=== PATIENT | male | born 1950 | race African-American/Black ===

== ENCOUNTER 2017-10-20 10:45 | Observation (INO) | payer MEDICARE, BC ==
[2017-10-20 11:15] LABS: #Lymphocytes 0.3 thou/uL (1.20-3.40); #Monocytes 0.2 thou/uL (0.11-0.59); %Eosinophils 0.7 % (0.0-10.0); %Lymphocytes 13.3 % (21.0-51.0); Hemoglobin 6.1 g/dL (14.0-18.0); Mean Corpuscular HGB CONC 31.9 g/dL (32.0-36.0); Mean Corpuscular Hemoglobin 26.9 pg (27.0-31.0); Mean Corpuscular Volume 84.4 fl (80.0-94.0); Mean Platelet Volume 11.4 fL (7.4-10.4); Platelet Count 174 thou/uL (130-400); RBC Distribution Width 19.7 % (11.5-14.5); Red Blood Cell (RBC) Count 2.28 mill/uL (4.70-6.10); White Blood Cell (WBC) Count 2.5 thou/uL (4.8-10.8)
[2017-10-20 11:38] LABS: ALT (SGPT) 8 U/L (8-55); AST (SGOT) 13 U/L (5-34); Alkaline Phosphatase 91 U/L (40-150); Anion Gap 17 mmol/L (10-20); BUN (Urea Nitrogen) 13 mg/dL (8.4-25.7); Bilirubin, Total 0.3 mg/dL (0.2-1.2); Calc. Creatinine Clearance 0 mL/min (70-130); Calcium 9.2 mg/dL (7.8-10.44); Carbon Dioxide 30 mmol/L (23-31); Chloride 98 mmol/L (98-107); Estimated GFR-MDRD 19; Globulin 2.8 g/dL (2.4-3.5); Glucose 101 mg/dL (80-115); Protein, Total 6.8 g/dL (5.8-8.1); Sodium 141 mmol/L (136-145)
[2017-10-20] MEDS ORDERED: Ondansetron HCl/PF 4 MG/2 ML Vial IVP PRN ×2 (12:00→14:50)
[2017-10-20] MEDS ORDERED: Ondansetron ODT 4 MG TAB SL PRN (12:00)
[2017-10-20] MEDS ORDERED: Senokot 8.6 MG TAB PO PRN (14:50)
[2017-10-20] MEDS ORDERED: hydrALAZINE 20 MG/ML VIAL SLOW IVP PRN (14:50)
[2017-10-20] MEDS ORDERED: Artificial Tears 18 DROP/0.9 ML EA EYE PRN (14:50)
[2017-10-20] MEDS ORDERED: Sodium Chloride 0.65% Nasal 44 ML BOT EA NARE PRN (14:50)
[2017-10-20] MEDS ORDERED: Ondansetron ODT 4 MG TAB PO PRN (14:50)
[2017-10-20] MEDS ORDERED: Acetaminophen 325 MG TAB PO PRN (14:50)
[2017-10-20] MEDS ORDERED: HYDROcodone/Acetaminophen 5/325 mg Tablet PO PRN (14:50)
[2017-10-20] MEDS ORDERED: Milk Of Magnesia 30 ML UDCUP PO PRN (14:50)
[2017-10-20] MEDS ORDERED: Chloraseptic Spray 180 ml Bottle PO PRN (14:50)
[2017-10-20] MEDS ORDERED: Eucerin (Mineral Oil/Petrolatum,White) 30 gm Jar TOP PRN (14:50)
[2017-10-20] MEDS ORDERED: Loratadine 10 MG TAB PO PRN (14:50)
[2017-10-20] MEDS ORDERED: Mag-Al 1200 mg/1200 mg/30 ML UDCUP PO PRN (14:50)
[2017-10-20] MEDS ORDERED: Loperamide HCl 2 MG CAP PO PRN (14:50)
[2017-10-20] MEDS ORDERED: Diabetic Tussin 200 MG/10 ML UDCUP PO PRN (14:50)
--- NOTE | 2017-10-20 14:51 | HP ---
PRIMARY CARE PHYSICIAN: [facility]. PRIMARY RETAIL SALES ADVISOR: Dr. Barlow. REASON FOR ADMISSION: Symptomatic anemia for transfusion. 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 The pat ient is on antirejection medication. Today, he had dialysis done as an outpatient basis and patient' s hemoglobin was 5.1, which was ordered as an outpatient basis and that is why he was instructed to g o to hospital for blood transfusion. Today in our emergency room, his hemoglobin is 6.1. The patient denies any blood loss from any site. He does not have any melena, hematochezia. He denies any vomiting of blood. He denies any epigast reanna abdominal pain, only patient's complaint was feeling fatigued, dizzy, and weak. He did not have any syncopal episode. He denies any chest pain. He does report dyspnea on exertion which is chronic for him. He denies any orthopnea, PND. He does report lower extremity pitting edema. He denies an y fever or chills. He denies any UTI symptoms. He denies any constipation, diarrhea. The patient had routine blood test done on an outpatient basis. At that time, his hemoglobin was 5.1 and today in our emergency room, hemoglobin is 6.1. The patient was sent by his analytical engineer for bl ood transfusion. In the emergency room, the patient is typed and crossed for 2 units of transfusion and we will slowly transfuse over next several hours and we will repeat labs tomorrow and then we will consider dischar ging from hospital. REVIEW OF SYSTEMS: The following complete review of systems was negative, unless otherwise mentioned in the HPI or below: Constitutional: Weight loss or gain, ability to conduct usual activities. Skin: Rash, itching. Eyes: Double vision, pain. ENT/Mouth: Nose bleeding, neck stiffness, pain, tenderness. Cardiovascular: Palpitations, dyspnea on exertion, orthopnea. Respiratory: Shortness of breath, wheezing, cough, hemoptysis, fever or night sweats. Gastrointestinal: Poor appetite, abdominal pain, heartburn, nausea, vomiting, constipation, or diarr hea. Genitourinary: Urgency, frequency, dysuria, nocturia. Musculoskeletal: Pain, swelling. Neurologic/Psychiatric: Anxiety, depression. Allergy/Immunologic: Skin rash, bleeding tendency. Please see my HPI for pertinent positives and negatives. All other review of systems reviewed and ne gative except as mentioned in the HPI. ALLERGIES: No known drug allergies. CURRENT HOME MEDICATIONS: Patient reports that there is no significant change in his previous medica tions. The patient is on following medication based on previous discharge summary. The patient did not bring his home medication, so unable to verify. Allopurinol 100 mg p.o. daily, aspirin 81 mg p.o . daily, vitamin D3 1000 units p.o. b.i.d., Pepcid 20 mg p.o. at bedtime, Myfortic 720 mg p.o. b.i.d. , prednisone 5 mg p.o. daily, Bactrim one tablet p.o. daily Prograf 1.5 mg p.o. b.i.d., ganciclovir 4 50 mg p.o. every 3 days. PAST MEDICAL HISTORY: Hypertension, anemia of renal disease, history of pericardial effusion, histor y of end-stage renal disease on hemodialysis, history of renal transplant on immunosuppressive therap y, history of hydronephrosis of transplanted kidney. PAST SURGICAL HISTORY: Cadaveric renal transplant, AV fistula placement, cuffed hemodialysis cathete r placement. PAST PSYCHIATRIC HISTORY: Reviewed and negative. SOCIAL HISTORY: Patient lives at home with the family. No history of tobacco, alcohol or illicit dr ug abuse. FAMILY HISTORY: No strong family history of premature coronary artery disease, stroke or cancer. EMERGENCY ROOM COURSE: Patient is receiving 2 units of blood transfusion. PHYSICAL EXAMINATION: VITAL SIGNS: Currently, blood pressure 139/69, pulse 106, respiratory rate 18, temperature 98.0, sat uration 100% on room air, weight 79.8 kilograms. GENERAL: The patient is alert, awake, no obvious acute distress, chronically ill, pale looking. HEAD: Normocephalic, atraumatic. EYES: Pupils round, reactive to light. Conjunctivae pale. ENT: Pale mucous membranes. No pharyngeal erythema, no exudate. No thrush. NECK: Supple, no JVD, no thyromegaly, no meningeal signs of irritation. LUNGS: Clear to auscultation without any rhonchi or rales. CARDIAC: S1, S2 regular, slightly tachycardia, no murmur, no gallop, no rub. ABDOMEN: Soft, bowel sounds present, nontender, nondistended. No organomegaly, no mass, no suprapub ic tenderness. BACK: Examination unremarkable, no CVA tenderness. EXTREMITIES: Upper extremity; dialysis graft to left upper extremity, otherwise both upper extremiti es within normal limits. Lower extremity, bilateral lower extremity pitting edema noted. Good dista l pulsation. SKIN: No skin rash. HEMATOLOGICAL SYSTEM: No lymphadenopathy. PSYCHIATRIC: Normal affect. NEUROLOGIC: Nonfocal examination. The patient moves all 4 limbs. Plantar bilateral flexor. SIGNIFICANT LABORATORY DATA: 1. CBC: WBC 2.5, hemoglobin 6.1, platelets 174. 2. BMP: Sodium 141, potassium 4.0, chloride 98, carbon dioxide 30, anion gap 17, BUN 13, creatinine 3.85, glucose 101, calcium 9.2. 3. LFT: AST 13, ALT 8, alkaline phosphatase 91, albumin 4.0. ASSESSMENT AND PLAN/IMPRESSION: 1. Severe symptomatic anemia. This patient has end-stage renal disease and he is getting Procrit Mo , Monday, and Monday with dialysis. Still this patient's hemoglobin is 6.1. As an outpatient basis, it was 5.1, most likely related with anemia of renal disease. The patient does not have any blood loss from any site and his BUN and creatinine ratio is also normal. Does not suspect any blood loss from gastrointestinal tract. Patient is planned for 2 units of transfusion, which we will do s lowly over a period of time. We will repeat complete blood count tomorrow as patient is on immunosup pressive therapy. Other differential diagnosis is parvovirus infection, but patient does not have an y rash or any other viral symptoms to suspect. We will check ferritin, total iron binding capacity, folate, B12 as a part of anemia workup. We will also send stool for occult blood for diagnosis. 3. End-stage renal disease. Dr. Barlow will be consulted in case if this patient needs any dialysis to [place] after transfusion to prevent any fluid overload status. 4. History of renal transplant, on immunosuppressive therapy. We will continue Prograf 1.5 mg p.o. b.i.d., prednisone 5 mg p.o. daily, Myfortic 720 mg p.o. b.i.d. We will verify this medication from patient's home medication and modify accordingly. 5. Prophylaxis. We will continue Bactrim 1 tablet daily and Valcyte 450 mg every 3 days. 6. Hyperuricemia. We will continue allopurinol 100 mg p.o. daily and we will check uric acid level. 7. Deep venous thrombosis prophylaxis, sequential compression device boots only. 8. Gastrointestinal prophylaxis, Pepcid 20 mg daily. 9. Vitamin D deficiency. We will continue vitamin D3 1000 units p.o. twice daily. CODE STATUS: Patient is FULL CODE. Patient's sister is surrogate decision maker. Disposition plan based on clinical course, likely within 24 hours. Plan of care discussed with the p atient and patient's sister bedside in the emergency room.
[2017-10-20 14:56] LABS: Iron Binding Capacity, Total 170 mcg/dL (261-462); Uric Acid Less than 2.0 mg/dL (3.5-7.2)
[2017-10-20 14:57] LABS: Iron 185 ug/dL (65-175)
[2017-10-20 15:30] LABS: Thyroid Stimulating Hormone 1.8554 uIU/mL (0.35-4.94)
[2017-10-20 16:07] LABS: Ferritin 2577.8 ng/mL (22-322)
[2017-10-20 18:24] LABS: Vitamin B12 Greater than 2000 pg/mL (211-911)
[2017-10-20] MEDS: Mycophenolate ER 180 MG TAB PO SCH (20:19)
[2017-10-20] MEDS: Tacrolimus 0.5 MG CAP PO SCH (20:19)
[2017-10-20] MEDS ORDERED: HumaLOG 300 UNITS/3 ML VIAL SC PRN (20:30)
[2017-10-20] MEDS ORDERED: Dextrose 5% in Water 1,000 ML IV PRN (20:30)
[2017-10-20] MEDS ORDERED: Dextrose 50% Abboject 50 ML SYRINGE IVP PRN (20:30)
[2017-10-20] MEDS ORDERED: Insulin Detemir 100 UNITS/ML 15 UNITS in Pre-Filled Syringe 1 EACH SC SCH (21:00)
[2017-10-21 04:50] LABS: Anion Gap 12 mmol/L (10-20); BUN (Urea Nitrogen) 22 mg/dL (8.4-25.7); Calc. Creatinine Clearance 13 mL/min (70-130); Calcium 8.7 mg/dL (7.8-10.44); Carbon Dioxide 33 mmol/L (23-31); Chloride 100 mmol/L (98-107); Estimated GFR-MDRD 11; Glucose 47 mg/dL (80-115); Potassium 4.8 mmol/L (3.5-5.1); Sodium 140 mmol/L (136-145)
[2017-10-21 05:02] LABS: Anisocytosis MODERATE=16-30 cells (100X) (0-5/hpf); Band 10 % (5-11); Eosinophils 1 % (0-10); Helmet Cells SLIGHT = 2-5 cells (100X) (0-1/hpf); Hemoglobin 6.1 g/dL (14.0-18.0); Lymphocytes 15 % (21-51); MDiff Complete? YES; Mean Corpuscular HGB CONC 32.2 g/dL (32.0-36.0); Mean Corpuscular Hemoglobin 28.7 pg (27.0-31.0); Mean Corpuscular Volume 89.1 fl (80.0-94.0); Mean Platelet Volume 10.5 fL (7.4-10.4); Monocytes 15 % (0-10); Neutrophil 58 % (42-75); PLT Morphology Comment Appears Decreased; Platelet Count 120 thou/uL (130-400); RBC Distribution Width 15.6 % (11.5-14.5); Red Blood Cell (RBC) Count 2.13 mill/uL (4.70-6.10); Tear Drops SLIGHT = 2-5 cells (100X) (0-1/hpf); White Blood Cell (WBC) Count 2.3 thou/uL (4.8-10.8)
[2017-10-21 06:10] LABS: Hemoglobin 6.6 g/dL (14.0-18.0)
[2017-10-21] MEDS: Calcium Acetate 667 MG CAP PO SCH ×3 (08:57→20:56)
[2017-10-21] MEDS: predniSONE 5 MG TAB PO SCH (08:57)
[2017-10-21] MEDS: Allopurinol 100 MG TAB PO SCH (08:57)
[2017-10-21] MEDS: Ferrous Sulfate 325 MG TAB PO SCH (08:57)
[2017-10-21] MEDS: Cinacalcet HCl 30 MG TAB PO SCH (08:58)
[2017-10-21] MEDS: Sulfameth/Trimethoprim SS 400-80MG TAB PO SCH (08:58)
[2017-10-21] MEDS: Famotidine 20 MG TAB PO SCH (08:58)
[2017-10-21] MEDS: Mycophenolate ER 180 MG TAB PO SCH ×2 (08:58→20:56)
[2017-10-21] MEDS: Tacrolimus 0.5 MG CAP PO SCH ×2 (08:58→20:57)
[2017-10-21] MEDS ORDERED: Epoetin (ESRD) 20,000 UNITS/ML SC SCH (10:00)
--- NOTE | 2017-10-21 11:00 | PDOC.PN ---
- Subjective Encounter Start Date: 10/21/17 Encounter Start Time: 07:30 -: old records requested/rev Patient seen and examined. No new complaints. No overnight events - Objective Resuscitation Status: Resuscitation Status FULL:Full Resuscitation MAR Reviewed: Yes Vital Signs & Weight: Vital Signs (12 hours) Temp Pulse Pulse Resp BP BP Pulse Ox 10/21/17 10:26 98.7 F 83 16 146/77 H 96 10/21/17 08:00 98.7 F 83 16 10/21/17 06:50 98.8 F 99 20 133/64 96 10/21/17 06:35 98.7 F 101 H 20 125/58 L 95 10/21/17 03:55 98.8 F 88 18 141/68 H 97 10/20/17 23:09 98.9 F 101 H 18 127/66 96 Weight Weight 161 lb 9.6 oz Most Recent Monitor Data Heart Rate from ECG 96 NIBP 134/69 Respiration from ECG 18 I&O: 10/20/17 10/21/17 10/22/17 06:59 06:59 06:59 Intake Total 950 350 Output Total 25 Balance 925 350 Result Diagrams: 10/21/17 05:57 10/21/17 03:58 Additional Labs: Accuchecks 10/21/17 10/20/17 05:32 20:18 POC Glucose 93 175 H Phys Exam - Physical Examination Constitutional: NAD HEENT: PERRLA, moist MMs, sclera anicteric Neck: no JVD, supple Respiratory: no wheezing, no rales, no rhonchi Cardiovascular: RRR, no significant murmur, no rub Gastrointestinal: soft, non-tender, no distention, positive bowel sounds Musculoskeletal: pulses present, edema present Neurological: non-focal, normal sensation Lymphatic: no nodes Psychiatric: normal affect, A&O x 3 Skin: no rash, normal turgor Dx/Plan (1) Guaiac positive stools Status: Acute (2) Hypoglycemia associated with type 2 diabetes mellitus Code(s): E11.649 - TYPE 2 DIABETES MELLITUS WITH HYPOGLYCEMIA WITHOUT COMA Status: Acute (3) Symptomatic anemia Code(s): D64.9 - ANEMIA, UNSPECIFIED Status: Acute (4) Anemia of renal disease Code(s): D63.1 - ANEMIA IN CHRONIC KIDNEY DISEASE Status: Chronic (5) ESRD (end stage renal disease) Code(s): N18.6 - END STAGE RENAL DISEASE Status: Chronic Comment: s/p transplant (6) Edema, lower extremity Code(s): R60.0 - LOCALIZED EDEMA Status: Chronic (7) HTN (hypertension) Code(s): I10 - ESSENTIAL (PRIMARY) HYPERTENSION Status: Chronic Qualifiers: (8) Immunosuppressed status Code(s): D89.9 - DISORDER INVOLVING THE IMMUNE MECHANISM, UNSPECIFIED Status: Chronic (9) Kidney transplant status, cadaveric Code(s): Z94.0 - KIDNEY TRANSPLANT STATUS Status: Chronic Comment: [facility] [address] [facility] (10) Secondary hyperparathyroidism of renal origin Code(s): N25.81 - SECONDARY HYPERPARATHYROIDISM OF RENAL ORIGIN Status: Chronic - Plan cont current plan of care * given his low Hb and guiac positive stool, will consult GI for evaluation for EGD * 3 unit PRBC given * repeat labs tomorrow * resume home meds * medication reviewed as below * symptomatic treatment. Review of Systems - Review of Systems Constitutional: negative: fever, chills, sweats, weakness, malaise, other ENT: negative: Ear Pain, Ear Discharge, Nose Pain, Nose Discharge, Nose Congestion, Mouth Pain, Mouth Swelling, Throat Pain, Throat Swelling, Other Respiratory: negative: Cough, Dry, Shortness of Breath, Hemoptysis, SOB with Excertion, Pleuritic Pain, Sputum, Wheezing Cardiovascular: negative: chest pain, palpitations, orthopnea, paroxysmal nocturnal dyspnea, edema, light headedness, other Gastrointestinal: negative: Nausea, Vomiting, Abdominal Pain, Diarrhea, Constipation, Melena, Hematochezia, Other Genitourinary: negative: Dysuria, Frequency, Incontinence, Hematuria, Retention , Other Musculoskeletal: negative: Neck Pain, Shoulder Pain, Arm Pain, Back Pain, Hand Pain, Leg Pain, Foot Pain, Other - Medications/Allergies Allergies/Adverse Reactions: Allergies Allergy/AdvReac Type Severity Reaction Status Date / Time No Known Drug Allergies Allergy Verified 06/09/17 22:11 Medications: Current Medications Acetaminophen (Tylenol) 650 mg PO Q4H PRN PRN Reason: Headache/Fever or Pain Hydrocodone Bitart/Acetaminophen ([place] 5/325) 1 tab PO Q4H PRN PRN Reason: Moderate Pain (4-6) Al Hydroxide/Mg Hydroxide (Maalox) 30 ml PO Q6H PRN PRN Reason: Heartburn or Indigestion Allopurinol (Zyloprim) 100 mg PO DAILY [facility] Last Admin: 10/21/17 08:57 Dose: Not Given Artificial Tears (Tears Naturale) 0 drop EA EYE PRN PRN PRN Reason: Dry Eyes Aspirin (Aspirin Chewable) 81 mg PO DAILY [facility] Last Admin: 10/21/17 08:57 Dose: Not Given Calcium Acetate (Phoslo) 667 mg PO TID [facility] Last Admin: 10/21/17 08:57 Dose: Not Given Cholecalciferol (Vitamin D3) 1,000 units PO BID [facility] Last Admin: 10/21/17 08:57 Dose: Not Given Cinacalcet (Sensipar) 30 mg PO DAILY [facility] Last Admin: 10/21/17 08:58 Dose: Not Given Dextrose/Water (Dextrose 50%) 25 gm IVP PRN PRN PRN Reason: HYPOGLYCEMIA PROTOCOL Epoetin Km (Procrit) 10,000 units SC Q7D [facility] Famotidine (Pepcid) 20 mg PO DAILY [facility] Last Admin: 10/21/17 08:58 Dose: Not Given Ferrous Sulfate (Feosol) 325 mg PO [facility] Last Admin: 10/21/17 08:57 Dose: Not Given Glucagon (Glucagon) 1 mg IM PRN PRN PRN Reason: HYPOGLYCEMIA PROTOCOL Guaifenesin (Robitussin Sf) 200 mg PO Q4H PRN PRN Reason: Cough Hydralazine HCl (Apresoline) 10 mg SLOW IVP Q4H PRN PRN Reason: Systolic BP > 180 Dextrose/Water (D5w) 1,000 mls @ 0 mls/hr IV INF PRN; As Directed PRN Reason: HYPOGLYCEMIA PROTOCOL Insulin Human Lispro (Humalog) 0 units SC .MILD SLIDING SCALE PRN; Protocol PRN Reason: MILD SLIDING SCALE Latanoprost (Xalatan 0.005% Ophth Soln) 1 drop EA EYE [facility] Loperamide HCl (Imodium) 2 mg PO PRN PRN PRN Reason: Diarrhea/Loose Stools Loratadine (Claritin) 10 mg PO DAILYPRN PRN PRN Reason: Sinus Symptoms Magnesium Hydroxide (Milk Of Magnesium) 30 ml PO DAILYPRN PRN PRN Reason: Constipation Mineral Oil/White Petrolatum (Eucerin Cream) 0 gm TOP BIDPRN PRN PRN Reason: Dry Skin Mycophenolate Sodium (Myfortic) 720 mg PO BID [facility] Last Admin: 10/21/17 08:58 Dose: Not Given Ondansetron HCl (Zofran Odt) 4 mg PO Q6H PRN PRN Reason: Nausea/Vomiting Ondansetron HCl (Zofran) 4 mg IVP Q6H PRN PRN Reason: Nausea/Vomiting Phenol (Chloraseptic [place] 180 Ml Bot) 0 ml PO PRN PRN PRN Reason: Sore Throat Prednisone (Prednisone) 5 mg PO QAM-WM [facility] Last Admin: 10/21/17 08:57 Dose: Not Given Senna (Senokot) 2 tab PO HSPRN PRN PRN Reason: Constipation Sodium Chloride ([place] Nasal [place] 0.65%) 0 ml EA NARE QIDPRN PRN PRN Reason: Nasal Congestion Tacrolimus (Prograf) 1.5 mg PO BID [facility] Last Admin: 10/21/17 08:58 Dose: Not Given Trimethoprim/Sulfamethoxazole (Bactrim Ss) 1 tab PO DAILY [facility] Last Admin: 10/21/17 08:58 Dose: Not Given Valganciclovir (Valcyte) 450 mg PO Q3DAYS [facility]
--- NOTE | 2017-10-21 11:02 | CON ---
DATE OF CONSULTATION: 10/21/2017 HISTORY OF PRESENT ILLNESS: Mr. Langston is a 67-year-old black male with ESRD, ESRD secondary to pres umed polycystic kidney disease, status post renal transplant - failed, and now admitted for symptomat ic anemia. He initially had been noticed to have a drop in hemoglobin. Most recent hemoglobin as an outpatient was 5.1. This was repeated, it was 6.1. For this reason, the patient was admitted for f urther management. We are now being consulted for his maintenance hemodialysis. He did undergo hemo dialysis yesterday. We did use minimal heparin at that time. This morning he voices no new complaints. He still feels tired. No chest pain, no shortness of sloan th, no nausea, no vomiting, no diarrhea, no constipation, no syncopal episode. No fever or chills. No hematochezia, no melena, no hematemesis, no abdominal pain, no hemoptysis. MEDICATIONS: Tylenol 650 mg q.4 hours p.r.n., Zyloprim 100 mg daily, aspirin 81 mg daily, vitamin D3 at 1000 units b.i.d., PhosLo 667 mg p.o. t.i.d. with meals, Sensipar 30 mg daily, ferrous sulfate 32 5 mg q.a.m., p.r.n. hydralazine, Humalog sliding scale, Imodium p.r.n., Myfortic 720 mg p.o. b.i.d. - not given, prednisone 5 mg q.a.m., Prograf 1.5 mg p.o. b.i.d., Valcyte 450 mg q. 3 days, and Bactrim single strength 1 tablet q. day. PAST MEDICAL HISTORY: 1. End-stage renal disease secondary to presumed autosomal dominant polycystic kidney disease. 2. Status post renal transplant - failed. PAST SURGICAL HISTORY: 1. Status post cadaveric renal transplant. 2. Status post AV fistula placement. 3. Status post cuffed dialysis catheter placement. SOCIAL HISTORY: The patient is and lives with his . He lives in [place]. No children. 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 No alcoho l. No IV drug abuse, status post blood transfusion. Education high school. ALLERGIES: None. TRAUMA: None. IMMUNIZATIONS: Up to date. HOSPITALIZATIONS: Please see past medical history. FAMILY HISTORY: No family history of ESRD? PHYSICAL EXAMINATION: VITAL SIGNS: Blood pressure is 133/64, heart rate is 80, respiratory rate 20, temperature 98.8, and pulse ox 96%. GENERAL: Noted to be awake, alert, comfortable, not in distress. SKIN: Adequate turgor. HEENT: He has slightly pale conjunctivae, anicteric sclerae. NECK: No neck mass, no carotid bruits, no JVD. CHEST: No deformities. LUNGS: Decreased breath sounds. HEART: Normal sinus rhythm. No murmur, no gallops, or rubs. ABDOMEN: Globular, soft, nontender, no masses. EXTREMITIES: No edema, no deformities. NEUROLOGIC: Awake, oriented to 3 spheres. Moving all extremities. No tremors or asterixis, no atax ia. ASSESSMENT AND PLAN: 1. Symptomatic anemia, receiving 2 units of packed RBC. Most recent hemoglobin is noted at 6.6. My plan is to probably transfuse 2 more units until we can achieve something around 8 or 9. I feel suzi t this patient may need a GI workup if this has not been done. In addition, we will attempt to discu ss with the renal transplant program whether we could wean him off his mycophenolate. If he has no e vidence of GI bleed, it is possible that the mycophenolate may be affecting his bone marrow? Please note, according to the patient, he is being considered as a failed renal transplant. He has had viktor ral biopsies of his renal allograft. 2. End-stage renal disease, stable. We will continue current 3 times a week hemodialysis. We will currently using minimal heparin with dialysis. I agree with current management.
--- NOTE | 2017-10-21 19:21 | CON ---
DATE OF CONSULTATION: 10/21/2017 CHIEF COMPLAINT: Anemia. HISTORY OF PRESENT ILLNESS: Mr. Langston is a 67-year-old man, who was admitted after he was found to have severe anemia on routine outpatient blood work. He has had no overt gastrointestinal blood loss ; however, his hemoglobin was in the 5-6 range when tests as an outpatient and then repeated in the E R. He received 2 units transfusion yesterday and 1 today. He has no nausea, vomiting, diarrhea, con stipation, or abdominal pain. No red stools or black stools. He had some weight loss associated wit h recent renal transplant and diagnosis of diabetes. PAST MEDICAL HISTORY: End-stage renal disease secondary to polycystic kidney disease, diabetes melli tus, hypertension, history of pericardial effusion, and hydronephrosis. PAST SURGICAL HISTORY: Renal transplant in 04/2017. He remains on immunosuppressive medication; how ever, his transplant has failed and he is now back on dialysis. He has had AV fistula placement. FAMILY HISTORY: Negative for GI malignancy. SOCIAL HISTORY: No alcohol, tobacco or drugs. ALLERGIES: No known drug allergies. MEDICATIONS: Prior to admission, insulin, mycophenolate, prednisone 5 mg daily, allopurinol, aspirin 81 mg daily, famotidine, calcium acetate, Sensipar, [place] eyedrops, vitamin D3, Bactrim, and tacro limus. REVIEW OF SYSTEMS: Negative x10 systems reviewed except as stated in the history of present illness. PHYSICAL EXAMINATION: VITAL SIGNS: Temperature 98.6, pulse 60, blood pressure 140/72. GENERAL: He is in no acute distress, alert and oriented x3. HEENT: Eyes have no scleral icterus. Oropharynx is clear, without lesions. NECK: No cervical or supraclavicular lymphadenopathy. LUNGS: Clear to auscultation bilaterally. HEART: Regular rate and rhythm. ABDOMEN: Soft, nontender, nondistended. Bowel sounds are present. EXTREMITIES: No lower extremity edema. LABORATORY DATA: White blood cell count 2.3, hemoglobin 6.6 today after 2 units transfusion yesterda y. The pretransfusion hemoglobin is 6.1, platelets 120, creatinine 5.99. IMPRESSION: 1. Anemia. This is associated with pancytopenia and could be due to medication side effects or coul d be anemia secondary to chronic renal failure. He has been on Procrit. His ferritin is over 2000. There has been no overt gastrointestinal blood loss; however, he was hemoccult positive. 2. End-stage renal disease, status post renal transplant, which has failed and he continues to requi re hemodialysis. 3. Please note that he has had colonoscopy in 2011 at [facility] in [place] and then al so in 2015 at [facility] in [place] as part of his pretransplant workup. We will request these r ecords. RECOMMENDATIONS: 1. Plan EGD tomorrow. 2. Request records from his previous colonoscopy. 3. He has actually received 4 units transfusion. We will check a posttransfusion CBC tomorrow.
[2017-10-21] MEDS ORDERED: Latanoprost 0.005% Ophth Soln 2.5 ml Bottle EA EYE SCH (21:00)
[2017-10-22 03:49] VITALS: BMI 23.0
[2017-10-22 04:50] LABS: Anion Gap 13 mmol/L (10-20); BUN (Urea Nitrogen) 35 mg/dL (8.4-25.7); BUN/Creatinine Ratio 4.11; Calc. Creatinine Clearance 9 mL/min (70-130); Calcium 9.4 mg/dL (7.8-10.44); Carbon Dioxide 30 mmol/L (23-31); Chloride 99 mmol/L (98-107); Estimated GFR-MDRD 8; Glucose 98 mg/dL (80-115); Phosphorus 3.5 mg/dL (2.3-4.7); Potassium 5.3 mmol/L (3.5-5.1); Sodium 137 mmol/L (136-145)
[2017-10-22 04:53] LABS: Band 17 % (5-11); Hemoglobin 8.2 g/dL (14.0-18.0); Hypochromia SLIGHT = 6-15 cells (100X) (0-5/hpf); Lymphocytes 6 % (21-51); MDiff Complete? YES; Mean Corpuscular HGB CONC 32.3 g/dL (32.0-36.0); Mean Corpuscular Hemoglobin 29.2 pg (27.0-31.0); Mean Corpuscular Volume 90.4 fl (80.0-94.0); Mean Platelet Volume 10.6 fL (7.4-10.4); Monocytes 17 % (0-10); Neutrophil 60 % (42-75); PLT Morphology Comment Appears Decreased; Platelet Count 119 thou/uL (130-400); RBC Distribution Width 14.9 % (11.5-14.5); White Blood Cell (WBC) Count 2.4 thou/uL (4.8-10.8)
[2017-10-22] MEDS: Ferrous Sulfate 325 MG TAB PO SCH (07:59)
[2017-10-22] MEDS: Allopurinol 100 MG TAB PO SCH ×2 (07:59→10:05)
[2017-10-22] MEDS: predniSONE 5 MG TAB PO SCH ×2 (07:59→10:05)
[2017-10-22] MEDS: Mycophenolate ER 180 MG TAB PO SCH ×2 (08:00→11:25)
[2017-10-22] MEDS: Calcium Acetate 667 MG CAP PO SCH ×2 (08:00→10:05)
[2017-10-22] MEDS: Famotidine 20 MG TAB PO SCH (08:00)
[2017-10-22] MEDS: Tacrolimus 0.5 MG CAP PO SCH ×2 (08:00→11:29)
[2017-10-22] MEDS: Cinacalcet HCl 30 MG TAB PO SCH ×2 (08:00→10:05)
[2017-10-22] MEDS: Sulfameth/Trimethoprim SS 400-80MG TAB PO SCH ×2 (08:00→10:05)
[2017-10-22] MEDS ORDERED: Ondansetron HCl/PF 4 MG/2 ML Vial IVP PRN (08:24)
[2017-10-22] MEDS ORDERED: Promethazine HCl 25 MG/ML VIAL SLOW IVP PRN (08:24)
[2017-10-22] MEDS ORDERED: Promethazine HCl 25 MG/ML VIAL IM PRN (08:24)
[2017-10-22] MEDS ORDERED: Meperidine HCl/PF 25 MG/ML VIAL SLOW IVP PRN (08:24)
--- NOTE | 2017-10-22 09:28 | PDOC.PN ---
- Subjective Encounter Start Date: 10/22/17 Encounter Start Time: 06:20 Patient seen and examined. No new complaints. No overnight events - Objective Resuscitation Status: Resuscitation Status FULL:Full Resuscitation MAR Reviewed: Yes Vital Signs & Weight: Vital Signs (12 hours) Temp Pulse Resp BP Pulse Ox 10/22/17 09:12 98.6 F 74 18 148/71 H 97 10/22/17 05:54 98.4 F 79 16 144/70 H 96 10/22/17 05:10 96 10/22/17 00:04 98.6 F 75 18 147/72 H 96 Weight Weight 160 lb 14.999 oz Most Recent Monitor Data Heart Rate from ECG 96 NIBP 134/69 Respiration from ECG 18 I&O: 10/21/17 10/22/17 10/23/17 06:59 06:59 06:59 Intake Total 950 950 Output Total 25 Balance 925 950 Result Diagrams: 10/22/17 04:05 10/22/17 04:05 Additional Labs: Accuchecks 10/22/17 10/21/17 10/21/17 06:05 21:02 16:33 POC Glucose 107 147 H 80 10/21/17 11:20 POC Glucose 84 Phys Exam - Physical Examination Constitutional: NAD HEENT: PERRLA, moist MMs, sclera anicteric Neck: no JVD, supple Respiratory: no wheezing, no rales, no rhonchi Cardiovascular: RRR, no significant murmur, no rub Gastrointestinal: soft, non-tender, no distention, positive bowel sounds Musculoskeletal: pulses present, edema present Neurological: non-focal, normal sensation Psychiatric: normal affect, A&O x 3 Skin: no rash, normal turgor Dx/Plan (1) Guaiac positive stools Status: Acute (2) Hypoglycemia associated with type 2 diabetes mellitus Code(s): E11.649 - TYPE 2 DIABETES MELLITUS WITH HYPOGLYCEMIA WITHOUT COMA Status: Acute (3) Symptomatic anemia Code(s): D64.9 - ANEMIA, UNSPECIFIED Status: Acute (4) Anemia of renal disease Code(s): D63.1 - ANEMIA IN CHRONIC KIDNEY DISEASE Status: Chronic (5) ESRD (end stage renal disease) Code(s): N18.6 - END STAGE RENAL DISEASE Status: Chronic Comment: s/p transplant (6) Edema, lower extremity Code(s): R60.0 - LOCALIZED EDEMA Status: Chronic (7) HTN (hypertension) Code(s): I10 - ESSENTIAL (PRIMARY) HYPERTENSION Status: Chronic Qualifiers: (8) Immunosuppressed status Code(s): D89.9 - DISORDER INVOLVING THE IMMUNE MECHANISM, UNSPECIFIED Status: Chronic (9) Kidney transplant status, cadaveric Code(s): Z94.0 - KIDNEY TRANSPLANT STATUS Status: Chronic Comment[facility] Secondary hyperparathyroidism of renal origin Code(s): N25.81 - SECONDARY HYPERPARATHYROIDISM OF RENAL ORIGIN Status: Chronic - Plan cont current plan of care * today EGD * expecting discharge after procedure * medication reviewed as below * symptomatic treatment * resume home meds. Review of Systems - Review of Systems ENT: negative: Ear Pain, Ear Discharge, Nose Pain, Nose Discharge, Nose Congestion, Mouth Pain, Mouth Swelling, Throat Pain, Throat Swelling, Other Respiratory: negative: Cough, Dry, Shortness of Breath, Hemoptysis, SOB with Excertion, Pleuritic Pain, Sputum, Wheezing Cardiovascular: negative: chest pain, palpitations, orthopnea, paroxysmal nocturnal dyspnea, edema, light headedness, other Gastrointestinal: negative: Nausea, Vomiting, Abdominal Pain, Diarrhea, Constipation, Melena, Hematochezia, Other Genitourinary: negative: Dysuria, Frequency, Incontinence, Hematuria, Retention , Other Musculoskeletal: negative: Neck Pain, Shoulder Pain, Arm Pain, Back Pain, Hand Pain, Leg Pain, Foot Pain, Other - Medications/Allergies Allergies/Adverse Reactions: Allergies Allergy/AdvReac Type Severity Reaction Status Date / Time No Known Drug Allergies Allergy Verified 06/09/17 22:11 Medications: Current Medications Acetaminophen (Tylenol) 650 mg PO Q4H PRN PRN Reason: Headache/Fever or Pain Hydrocodone Bitart/Acetaminophen ([place] 5/325) 1 tab PO Q4H PRN PRN Reason: Moderate Pain (4-6) Al Hydroxide/Mg Hydroxide (Maalox) 30 ml PO Q6H PRN PRN Reason: Heartburn or Indigestion Allopurinol (Zyloprim) 100 mg PO DAILY [facility] Last Admin: 10/22/17 07:59 Dose: Not Given Artificial Tears (Tears Naturale) 0 drop EA EYE PRN PRN PRN Reason: Dry Eyes Aspirin (Aspirin Chewable) 81 mg PO DAILY [facility] Last Admin: 10/22/17 07:59 Dose: Not Given Calcium Acetate (Phoslo) 667 mg PO TID [facility] Last Admin: 10/22/17 08:00 Dose: Not Given Cholecalciferol (Vitamin D3) 1,000 units PO BID [facility] Last Admin: 10/22/17 08:00 Dose: Not Given Cinacalcet (Sensipar) 30 mg PO DAILY [facility] Last Admin: 10/22/17 08:00 Dose: Not Given Dextrose/Water (Dextrose 50%) 25 gm IVP PRN PRN PRN Reason: HYPOGLYCEMIA PROTOCOL Epoetin Km (Procrit) 10,000 units SC Q7D [facility] Last Admin: 10/21/17 12:21 Dose: 10,000 units Fentanyl (Pacu-Sublimaze) 50 mcg SLOW IVP Q10MIN PRN PRN Reason: Moderate to Severe Pain (6-10) Stop: 10/22/17 11:24 Glucagon (Glucagon) 1 mg IM PRN PRN PRN Reason: HYPOGLYCEMIA PROTOCOL Guaifenesin (Robitussin Sf) 200 mg PO Q4H PRN PRN Reason: Cough Hydralazine HCl (Apresoline) 10 mg SLOW IVP Q4H PRN PRN Reason: Systolic BP > 180 Dextrose/Water (D5w) 1,000 mls @ 0 mls/hr IV INF PRN; As Directed PRN Reason: HYPOGLYCEMIA PROTOCOL Insulin Human Lispro (Humalog) 0 units SC .MILD SLIDING SCALE PRN; Protocol PRN Reason: MILD SLIDING SCALE Latanoprost (Xalatan 0.005% Ophth Soln) 1 drop EA EYE HS [facility] Last Admin: 10/21/17 22:01 Dose: Not Given Loperamide HCl (Imodium) 2 mg PO PRN PRN PRN Reason: Diarrhea/Loose Stools Loratadine (Claritin) 10 mg PO DAILYPRN PRN PRN Reason: Sinus Symptoms Magnesium Hydroxide (Milk Of Magnesium) 30 ml PO DAILYPRN PRN PRN Reason: Constipation Meperidine HCl (Pacu-Demerol) 12.5 mg SLOW IVP ONE PRN PRN Reason: Shivering Stop: 10/22/17 11:24 Mineral Oil/White Petrolatum (Eucerin Cream) 0 gm TOP BIDPRN PRN PRN Reason: Dry Skin Mycophenolate Sodium (Myfortic) 720 mg PO BID [facility] Last Admin: 10/22/17 08:00 Dose: Not Given Ondansetron HCl (Zofran Odt) 4 mg PO Q6H PRN PRN Reason: Nausea/Vomiting Ondansetron HCl (Zofran) 4 mg IVP Q6H PRN PRN Reason: Nausea/Vomiting Ondansetron HCl (Pacu-Zofran) 4 mg IVP ONE PRN PRN Reason: Nausea/Vomiting Stop: 10/22/17 11:24 Pantoprazole Sodium (Protonix) 40 mg PO DAILY [facility] Phenol (Chloraseptic [place] 180 Ml Bot) 0 ml PO PRN PRN PRN Reason: Sore Throat Prednisone (Prednisone) 5 mg PO QA[facility] Last Admin: 10/22/17 07:59 Dose: Not Given Promethazine HCl (Pacu-Phenergan) 6.25 mg SLOW IVP ONE PRN PRN Reason: Nausea/Vomiting Stop: 10/22/17 11:24 Promethazine HCl (Pacu-Phenergan) 6.25 mg IM ONE PRN PRN Reason: Nausea/Vomiting Stop: 10/22/17 11:24 Senna (Senokot) 2 tab PO HSPRN PRN PRN Reason: Constipation Sodium Chloride ([place] Nasal [place] 0.65%) 0 ml EA NARE QIDPRN PRN PRN Reason: Nasal Congestion Tacrolimus (Prograf) 1.5 mg PO BID [facility] Last Admin: 10/22/17 08:00 Dose: Not Given Trimethoprim/Sulfamethoxazole (Bactrim Ss) 1 tab PO DAILY [facility] Last Admin: 10/22/17 08:00 Dose: Not Given Valganciclovir (Valcyte) 450 mg PO Q3DAYS [facility]
--- NOTE | 2017-10-22 11:02 | DIS ---
DATE OF ADMISSION: 10/20/2017 DATE OF DISCHARGE: 10/22/2017 PRIMARY CARE PHYSICIAN: Katerin Guillory. DISCHARGE DISPOSITION: Home. PRIMARY DISCHARGE DIAGNOSES: 1. Symptomatic anemia, status post 4 units transfusion. 2. Guaiac positive stool. 3. Erosive gastritis and esophagitis. 4. Hypoglycemia associated with diabetes type 2. SECONDARY DISCHARGE DIAGNOSES: Secondary hyperparathyroidism of renal origin, end stage renal diseas e on hemodialysis, history of cadaveric renal transplant, history of immunosuppressive status post du e to immunosuppressive medication, hypertension, glaucoma, lower extremity edema, anemia of renal dis ease. PRIMARY PROCEDURE/OPERATION: EGD which showed erosive esophagitis and gastritis. RADIOLOGICAL INVESTIGATION: None. SIGNIFICANT LABORATORY DATA: Hemoglobin on admission 6.1, on discharge was 8.2. Creatinine 8.51, po tassium 5.3. Stool for guaiac positive. DISCHARGE MEDICATIONS: Allopurinol 100 mg p.o. daily, aspirin 81 mg p.o. daily, Lumigan ophthalmic d rops at bedtime, PhosLo 667 mg t.i.d., vitamin D3 1000 units p.o. b.i.d., Sensipar 30 mg p.o. daily, Pepcid 20 mg p.o. at bedtime, ferrous sulfate 325 mg p.o. daily, Nephro-Colton 1 tablet p.o. daily, [place] tus 15 units subQ in the evening, Humalog insulin as per sliding scale, Myfortic 360 mg p.o. b.i.d., Protonix 40 mg p.o. daily, prednisone 5 mg p.o. daily, Bactrim SS one tablet p.o. daily and Prograf 1 .5 mg p.o. b.i.d. CONTRAINDICATIONS: None. CODE STATUS: FULL CODE. INPATIENT CONSULTANTS: Dr. Barlow was following while in hospital. Dr. Dasilva was consulted for guaiac positive stool and he did endoscopy. TEST RESULTS PENDING ON DISCHARGE: None. ALLERGIES: No known drug allergy. DISCHARGE PLAN: Post hospital, the patient will follow up with primary care physician. He will have maintenance hemodialysis as an outpatient basis. He will follow up with Dr. Dasilva and Dr. Barlow as in structed. HOSPITAL COURSE: A 67-year-old male who has above-mentioned medical problem who had dialysis done an d he had an outpatient basis blood test done and his hemoglobin was very low. He did not have any ob vious bleeding from any site. He did not report to us, but his stool for guaiac was positive and suzi t is why we consulted night cleaner. He required total of 4 units of blood transfusion and he u nderwent upper endoscopy, which showed erosive esophagitis and gastritis and Dr. Dasilva recommended to start Protonix. We prescribed ferrous sulfate, Nephro-Colton tablet on discharge. Rest of medication, he will continue as per previous. He will follow up with Dr. Barlow and primary care physician. I spoke with Dr. Dasilva and he cleared him for discharge. The patient is seen and examined at bedside today. Please see my progress note from today for furthe r details.
[2017-10-22] MEDS ORDERED: Propofol 200 MG/20 ML VIAL ONE (12:13)
[2017-10-22] MEDS ORDERED: Lidocaine 1% PF 5 ML VIAL ONE (12:13)
[2017-10-22 12:17] VITALS: BP 157/74; TEMP 98.2
--- NOTE | 2017-10-22 12:20 | OP ---
DATE OF PROCEDURE: 10/22/2017 PROCEDURE: Esophagogastroduodenoscopy with biopsy. PREOPERATIVE DIAGNOSIS: Anemia and Hemoccult positive stool. OPERATIVE NOTE: Informed consent was obtained from the patient. He was sedated with total intraveno us anesthesia. The bite block was placed and the endoscope was advanced easily to the second portion of the duodenum and retroflexion was performed in the stomach. The esophagus had grade C erosive es ophagitis in the distal and mid esophagus. Biopsies were obtained. The stomach had erosive patchy g astritis in the antrum. Biopsies were obtained to rule out H. pylori. The stomach was normal on ret roflexed views. The pylorus was normal. There was nonerosive erythematous duodenitis in the first p ortion of the duodenum. The second portion of the duodenum was normal. IMPRESSION: 1. Grade C erosive esophagitis, biopsied. 2. Erosive antral gastritis, biopsied. 3. Nonerosive duodenitis in the first portion of the duodenum. RECOMMENDATIONS: 1. Proton pump inhibitor daily. We will start pantoprazole 40 mg daily. He could likely be decreas ed to 20 mg daily after a month; however, he should likely maintain a PPI given the chronic use of as pirin and prednisone. 2. Await histopathology. 3. Request again records from the colonoscopy at [facility] in [place] in 2014 and at [facility] in [place] in 2011. 4. I will sign off. Please call if GI can be of assistance.
== END 2017-10-22 15:14 | disposition home or self-care (01) ==
LOC: ERS 10:45 → 2SW 12:38
PROVIDERS: ADMIT Internal Medicine; ATTEND Internal Medicine
PROC: 0DB58ZX Excision of Esophagus, Via Natural or Artificial Opening Endoscopic, Diagnostic (ICD-10-PCS; principal; 2017-10-22)
PROC: 0DB68ZX Excision of Stomach, Via Natural or Artificial Opening Endoscopic, Diagnostic (ICD-10-PCS; 2017-10-22)
DX: K29.50 Unspecified chronic gastritis without bleeding (principal); K22.10 Ulcer of esophagus without bleeding; K29.80 Duodenitis without bleeding; I12.0 Hypertensive chronic kidney disease with stage 5 chronic kidney disease or end stage renal disease; E11.22 Type 2 diabetes mellitus with diabetic chronic kidney disease; E11.649 Type 2 diabetes mellitus with hypoglycemia without coma; N18.6 End stage renal disease; D63.1 Anemia in chronic kidney disease; E79.0 Hyperuricemia without signs of inflammatory arthritis and tophaceous disease; E55.9 Vitamin D deficiency, unspecified; N25.81 Secondary hyperparathyroidism of renal origin; R19.5 Other fecal abnormalities; H40.9 Unspecified glaucoma; R60.0 Localized edema; D89.9 Disorder involving the immune mechanism, unspecified; Z79.82 Long term (current) use of aspirin; Z79.899 Other long term (current) drug therapy; Z94.0 Kidney transplant status; Z99.2 Dependence on renal dialysis; Z86.79 Personal history of other diseases of the circulatory system
CPT/HCPCS: 36430 ×2; 43239; 80048; 80069; 82274; 82607; 82728; 82746; 82962 ×3; 83540; 83550; 84550; 85014; 85018; 85025 ×2; 86850; 86900; 86901; 86920; 88305; 88312; 88313; 99291; G0378; P9016 ×2; Q4081; 36415; 36416; 80053; 84443; J1815; J2001; J2704; J7507

== ENCOUNTER 2017-11-09 08:22 | Day surgery (SDC) | payer MEDICARE, BC ==
[2017-11-09] MEDS ORDERED: Sodium Chloride 0.9% 20 ML ONE (09:17)
[2017-11-09] MEDS ORDERED: cloNIDine 0.1 MG TAB PO SCH (16:00)
[2017-11-09 16:09] VITALS: BP 183/92
[2017-11-09 16:58] VITALS: TEMP 98.4
== END 2017-11-09 16:59 | disposition home or self-care (01) ==
LOC: ONC/OP 08:22
PROVIDERS: ATTEND Internal Medicine Nephrology
PROC: 30233N1 Transfusion of Nonautologous Red Blood Cells into Peripheral Vein, Percutaneous Approach (ICD-10-PCS; principal; 2017-11-09)
DX: D64.9 Anemia, unspecified (principal)
CPT/HCPCS: 36415; 36430; 86850; 86900; 86901; A4216; P9016

== ENCOUNTER 2018-02-04 22:49 | Inpatient (IN) | payer MEDICARE, BC ==
--- NOTE | 2018-02-04 23:07 | RAD ---
SINGLE VIEW OF THE CHEST: Comparison: None. History: Difficulty breathing, cough. FINDINGS: Single view of the chest shows an enlarged cardiomediastinal silhouette. There is a small right pleur al effusion with adjacent atelectasis versus infiltrate. There may also be a left lower lobe infiltra te without an adjacent pleural effusion. IMPRESSION: 1. Cardiomegaly. 2. Bibasilar infiltrates. 3. Small right pleural effusion. POS: H
[2018-02-04 23:17] LABS: Actual Bicarbonate (HCO3a) 27.1 mEq/L (22-26); O2 Tension (PaO2) 351.1 mmHg (80.0-100.0); pH, Arterial 7.36 (7.35-7.45)
[2018-02-04 23:18] LABS: Base Excess (BEa) 1.1 mEq/L (0 (+/-) 2.5); Calcium, Ionized 1.1 mmol/L (1.12-1.30); Hematocrit-ABG 42.7 % (42.0-52.0); Hemoglobin (Hb) 12.2 g/dL (14.0-18.0)
[2018-02-04 23:19] LABS: Analyzer IN Cardio ER; Puncture Site RRA
[2018-02-04 23:37] LABS: Hemoglobin 12.7 g/dL (14.0-18.0); Mean Corpuscular HGB CONC 30.4 g/dL (32.0-36.0); Mean Corpuscular Hemoglobin 26.1 pg (27.0-31.0); Mean Corpuscular Volume 85.8 fl (80.0-94.0); RBC Distribution Width 19.2 % (11.5-14.5); Red Blood Cell (RBC) Count 4.88 mill/uL (4.70-6.10); White Blood Cell (WBC) Count 7.4 thou/uL (4.8-10.8)
[2018-02-04] MEDS ORDERED: Furosemide 40 MG/4 ML VIAL ONE (23:39)
[2018-02-04 23:41] LABS: ALT (SGPT) 16 U/L (8-55); AST (SGOT) 19 U/L (5-34); Albumin 4.2 g/dL (3.4-4.8); Alkaline Phosphatase 118 U/L (40-150); Anion Gap 19 mmol/L (10-20); BUN (Urea Nitrogen) 47 mg/dL (8.4-25.7); Bilirubin, Total 0.4 mg/dL (0.2-1.2); Calc. Creatinine Clearance 0 mL/min (70-130); Calcium 9.3 mg/dL (7.8-10.44); Carbon Dioxide 26 mmol/L (23-31); Chloride 99 mmol/L (98-107); Estimated GFR-MDRD 6; Globulin 3.1 g/dL (2.4-3.5); Glucose 165 mg/dL (80-115); Potassium 5.2 mmol/L (3.5-5.1); Protein, Total 7.3 g/dL (5.8-8.1); Sodium 139 mmol/L (136-145)
[2018-02-04 23:45] LABS: CKMB 1.6 ng/mL (0-6.6); Troponin I 0.053 ng/mL (< 0.028)
[2018-02-05 00:08] LABS: #Basophils 0.1 thou/uL (0.0-0.2); #Eosinphils 0.1 thou/uL (0.0-0.7); #Monocytes 0.8 thou/uL (0.11-0.59); #Neutrophils 4.4 thou/uL (1.40-6.50); %Eosinophils 1.2 % (0.0-10.0); %Lymphocytes 27.5 % (21.0-51.0); %Monocytes 11.3 % (0.0-10.0); %Neutrophils 58.9 % (42.0-75.0); Anisocytosis SLIGHT = 6-15 cells (100X) (0-5/hpf); MDiff Complete? YES; Mean Platelet Volume 5.6 fL (7.4-10.4); Platelet Count 197 thou/uL (130-400)
--- NOTE | 2018-02-05 01:18 | PDOC.FPRHP ---
Addendum entered and electronically signed by Raghu Wong DO 02/05/18 02: 38: Addendum to upper level H&P A/P: Problem: Lactic acidosis - No indication of infection at this time, thus more likely due to poor tissue perfusion. Will repeat after dialysis and monitor patient closely. Original Note: - History of Present Illness Chief Complaint: SOB History of Present Illness: 67 yo M w/hx of ESRD s/p failed renal transplant and DM2 here with complaint of acutely worsening SOB for the past 2 days. He has noticed SOB for apparently a month's duration however it began to significantly worsen around the middle of last week. He was seen by his PCP and started on abx for PNA. Over the past 48 hours he continued to worsen to the point that he called EMS today. Over this past 48 hours he has noticed a new onset 2 pillow orthopnea and LE edema. He has had continued cough without resolution of symptoms after completing abx. In route to the ED by EMS pt was started on Bipap due to increased work of breathing and poor saturation. Regarding ESRD, is typically a MWF HD pt of Dr Barlow. He has not recently missed HD and has been compliant with meds - Allergies/Adverse Reactions Allergies Allergy/AdvReac Type Severity Reaction Status Date / Time No Known Drug Allergies Allergy Verified 06/09/17 22:11 - Home Medications Medication Instructions Recorded Confirmed Type Allopurinol 100 mg PO DAILY 06/10/17 10/20/17 History Aspirin [Aspirin Chewable Tablet] 81 mg PO DAILY 06/10/17 10/20/17 History Cholecalciferol (Vitamin D3) 1,000 units PO BID 06/10/17 10/20/17 History [Vitamin D3] Famotidine [Pepcid] 20 mg PO HS 06/10/17 10/20/17 History Mycophenolate ER [Myfortic] 360 mg PO BID 06/10/17 10/20/17 History Sulfamethoxazole/Trimethoprim 1 tab PO DAILY 06/10/17 10/20/17 History [Bactrim SS] Tacrolimus [Prograf] 1.5 mg PO BID 06/10/17 10/20/17 History predniSONE [Prednisone] 5 mg PO DAILY 06/10/17 10/20/17 History Bimatoprost [[place] 0.01% Ophth 1 drop EA EYE HS 10/20/17 10/20/17 History Soln] Calcium Acetate [Phoslo] 667 mg PO TID 10/20/17 10/20/17 History Cinacalcet HCl [Sensipar] 30 mg PO DAILY 10/20/17 10/20/17 History Insulin Glargine,Hum.Rec.Anlog 15 unit SQ QPM 10/20/17 10/20/17 History [Lantus Solostar] Insulin Lispro [Humalog Kwikpen 6 unit SQ TID 10/20/17 10/20/17 History U-100] Ferrous Sulfate [Feosol] 325 mg PO QAM-WM #30 tab 10/22/17 Rx Folic Acid/Vit B Comp W-C 1 tab PO DAILY #30 tab 10/22/17 Rx [Nephro-Colton Tablet] Pantoprazole [Protonix] 40 mg PO DAILY #30 tab 10/22/17 Rx Comments: Pt does not know his medications and does not have them available. - History PMHx: ESRD DM2 Anemia of chronic disease PSHx: s/p renal transplaint FHx: unk Social: Previous smoker, unknown duration Denies etoh or recreational drugs - Review of Systems General: denies: fever/chills, weight/appetite/sleep changes Eyes: denies: eye pain, vision changes ENT: denies: nasal congestion, rhinorrhea Respiratory: reports: cough, shortness of breath. denies: congestion Cardiovascular: reports: edema (B/l LE), orthopnea. denies: chest pain, palpitation Gastrointestinal: denies: nausea, vomiting, abdominal pain, other Skin: denies: rashes, lesions Musculoskeletal: denies: pain, tenderness, stiffness Neurological: denies: numbness, syncope, seizure Psychological: denies: anxiety, depression - Vital signs BP: 175/106 HR: 102 RR: 18 Tmax: 97.4 Pox: 100% on bipap Wt: 79.5 kg - Physical Exam Constitutional: NAD, awake, alert and oriented HEENT: normocephalic and atraumatic, PERRLA, no scleral icterus Neck: supple, FROM, trachea midline Chest: no-tender to palpation Heart: RRR, normal S1/S2, no murmurs/rubs/gallops, other (1+ pitting edema to ankle b/l) Lungs: other (Rales at bases, mild wheezing) Abdomen: soft, non-tender, bowel sounds present Neurological: no focal deficit, CN II-XII intact Skin: no rash/lesions, good turgor Heme/Lymphatic: no unusual bruising or bleeding Psychiatric: normal mood and affect, good judgment and insight FMR H&P: Results - Labs Result Diagrams: 02/05/18 02:45 02/05/18 02:45 Lab results: WBC 7.4 thou/uL (4.8-10.8) 02/04/18 23:09 Hgb 12.7 g/dL (14.0-18.0) L 02/04/18 23:09 Hct 41.9 % (42.0-52.0) L 02/04/18 23:09 MCV 85.8 fl (80.0-94.0) 02/04/18 23:09 Plt Count 197 thou/uL (130-400) 02/04/18 23:09 Neutrophils % 58.9 % (42.0-75.0) 02/04/18 23:09 ABG pH 7.36 (7.35-7.45) 02/04/18 23:10 ABG pCO2 49.0 mmHg (35.0-45.0) H 02/04/18 23:10 ABG pO2 351.1 mmHg (80.0-100.0) H 02/04/18 23:10 Sodium 139 mmol/L (136-145) 02/04/18 23:09 Potassium 5.2 mmol/L (3.5-5.1) H 02/04/18 23:09 Chloride 99 mmol/L (98-107) 02/04/18 23:09 Carbon Dioxide 26 mmol/L (23-31) 02/04/18 23:09 BUN 47 mg/dL (8.4-25.7) H 02/04/18 23:09 Creatinine 10.97 mg/dL (0.6-1.3) H 02/04/18 23:09 Glucose 165 mg/dL (80-115) H 02/04/18 23:09 Lactic Acid 2.3 mmol/L (0.5-2.2) H 02/04/18 23:09 Calcium 9.3 mg/dL (7.8-10.44) 02/04/18 23:09 Total Bilirubin 0.4 mg/dL (0.2-1.2) 02/04/18 23:09 AST 19 U/L (5-34) 02/04/18 23:09 ALT 16 U/L (8-55) 02/04/18 23:09 Alkaline Phosphatase 118 U/L (40-150) 02/04/18 23:09 CK-MB (CK-2) 1.6 ng/mL (0-6.6) 02/04/18 23:09 Serum Total Protein 7.3 g/dL (5.8-8.1) 02/04/18 23:09 Albumin 4.2 g/dL (3.4-4.8) 02/04/18 23:09 - EKG Interpretation EKG: Sinus Tac, 145, no ST or T wave changes, - Radiology Interpretation Chest x-ray Status: report reviewed by me (cardiomegally, bibasilar infiltrates, small r pleural effusion) FMR H&P: A/P - Problem List (1) Acute respiratory failure with hypoxia Current Visit: Yes Status: Acute Priority: High Code(s): J96.01 - ACUTE RESPIRATORY FAILURE WITH HYPOXIA (2) Anemia of renal disease Current Visit: Yes Status: Chronic Priority: Low Code(s): D63.1 - ANEMIA IN CHRONIC KIDNEY DISEASE (3) ESRD (end stage renal disease) Current Visit: Yes Status: Chronic Priority: Medium Code(s): N18.6 - END STAGE RENAL DISEASE Comment: s/p transplant (4) Edema, lower extremity Current Visit: Yes Status: Chronic Priority: Low Code(s): R60.0 - LOCALIZED EDEMA (5) HTN (hypertension) Current Visit: Yes Status: Chronic Priority: Medium Code(s): I10 - ESSENTIAL (PRIMARY) HYPERTENSION Qualifiers: (6) Kidney transplant status, cadaveric Current Visit: Yes Status: Chronic Priority: Medium Code(s): Z94.0 - KIDNEY TRANSPLANT STATUS Comment: [facility] - Plan Acute hypoxic respiratory failure 2/2 volume overload - Dr Barlow consulted from ED, pt will go for emergent HD tonight - continue bipap, wean as possible - strict i/o and daily weights Possible PNA - procal pending, start abx as indicated HTN - likely exacerbated by overload - work to get accurate med rec, then start home meds s/p renal transplant - nephro consulted as above, appreciate rec - high protein diet DM2 - restart home meds - accucheck achs Hyperkalemia - mild and asymptomatic - recheck bmp in am after HD Ppx heparin Code full Diet high protein low carb Dispo: pt is stable, however has potential for decompensation. Work to remove excess fluid to improve respiratory status. Likely LOS greater than 72 hours FMR H&P: Upper Level - Pertinent history 67 year old male presents for dyspnea. He states he has been having trouble breathing for a month but it worsened significantly tonight. He was diagnosed with pneumonia and was given azithromycin and another antibiotic. He has ESRD on dialysis and also has a history of a failed kidney transplant April 2017, his rattan worker is Cain. He has a productive cough, orthopnea, and lower extremity edema. He denies fever, chills, chest pain, and palpitations. PMH ESRD on dialysis, failed renal transplant, HTN, DM2 In the ED he was seen by Dr. Murray, given Lasix 80 mg iv, and placed on BIPAP due to respiratory distress. - Pertinent findings Vital signs Temp 98.4 RR 31 HR 113 BP 167/99 O2 sats 99% on BIPAP Weight 79.5 kg BIPAP IPAP 15 EPAP 5 Rate 20 I-Time 0.80 FiO2 50% Physical Exam: General: NAD, AAxOx4 Eyes: EOMI, PERLL, nonicteric, conjunctiva clear ENT: MMM, oropharynx clear CV: RRR, no m/r/g. Pulses full and equal in all 4 extremities Respiratory: Tachypneic, bibasilar rales, increased work of breathing. No wheezing or rhonchi. Currently on BIPAP Abdomen: NT, ND, no guarding/rebound Extremities: 1+ edema to foot bilaterally, equal movements bilaterally Skin: No rash or ulcer, no palpable lesions Neuro: CN II-XII intact. No focal deficits Psych: Mood and affect appropriate. Judgment and insight intact. - Plan Date/Time: 02/05/18 0118 Raghu Taylor DO, have evaluated this patient and agree with findings/plan as outlined by [employer] internship resident. Pertinent changes/additions are listed here. A/P: 1) Acute hypoxic respiratory failure 2/2 to volume overload - Admit to IMCU. Continue BIPAP. Given Lasix in ED. Dr. Barlow consulted he is arranging for emergent dialysis tonight. Do not suspect pneumonia as source will check procalcitonin. Consider starting antibiotics if febrile. 2) Hyperkalemia - Mild. Dialysis 3) HTN - Home meds and dialysis 4) ESRD on dialysis - Dr. Barlow consulted. Renally dose meds 5) DM2 - Home meds 6) Code Status - Full Attending Addendum - Attending Addendum Date/Time: 02/05/18 4085 I personally evaluated the patient and discussed the management with Dr. Cesar on 02/04/18. I agree with the History, Examination, Assessment and Plan documented above with any addition or exceptions noted below- 67 yo male with h/o ESRD on HD and Type 2 DM presents c/o SOB. Reports that symptoms began 1 month ago but worsened 4 days ago. Seen by his PCP and diagnosed with pneumonia and started on abx. Reports that SOB continued to worsen and called EMS. Placed on BiPap with improvement in SOB. Patient also endorses orthopnea, PND, and increased edema. Denies any chest pain. States cough has improved since starting on abx. PMH/PSH/Meds/ All/SH reviewed and agree with resident's documentation. Afebrile VSS Lungs- crackles in bilateral bases; CV- RRR, no murmur Ext- 1+ edema. Labs: Hgb=12.7 Hct=41.9 Ut=244 K=5.2 Cr=10.97 lactic acid-2.3 Procalcitonin 1.38 CXR- right pleural effusion and vascular congestion A/P: 1) Volume overload secondary to ESRD- plan for HD; continue BiPap; wean as tolerated. 2) ESRD- nephrology notified; plan for HD, 3) DM- continue home meds.
[2018-02-05] MEDS ORDERED: Acetaminophen 325 MG TAB PO PRN (02:11)
[2018-02-05] MEDS ORDERED: Ondansetron HCl/PF 4 MG/2 ML Vial IVP PRN (02:11)
[2018-02-05] MEDS ORDERED: Ondansetron ODT 4 MG TAB SL PRN (02:11)
[2018-02-05 02:31] VITALS: BMI 24.0
[2018-02-05] MEDS ORDERED: Dextrose 5% in Water 1,000 ML IV PRN (02:36)
[2018-02-05] MEDS ORDERED: HumaLOG 300 UNITS/3 ML VIAL SC PRN ×2 (02:36)
[2018-02-05] MEDS ORDERED: Dextrose 50% Abboject 50 ML SYRINGE SLOW IVP PRN (02:36)
[2018-02-05 03:16] LABS: #Lymphocytes 0.4 thou/uL (1.20-3.40); #Monocytes 0.2 thou/uL (0.11-0.59); #Neutrophils 6.7 thou/uL (1.40-6.50); %Basophils 0.1 % (0.0-1.0); %Eosinophils 0.4 % (0.0-10.0); %Lymphocytes 5.2 % (21.0-51.0); %Monocytes 2.3 % (0.0-10.0); Hemoglobin 11.3 g/dL (14.0-18.0); Mean Corpuscular HGB CONC 31.1 g/dL (32.0-36.0); Mean Corpuscular Hemoglobin 26.3 pg (27.0-31.0); Mean Corpuscular Volume 84.6 fl (80.0-94.0); Mean Platelet Volume 5.7 fL (7.4-10.4); Platelet Count 153 thou/uL (130-400); RBC Distribution Width 19.3 % (11.5-14.5); White Blood Cell (WBC) Count 7.3 thou/uL (4.8-10.8)
[2018-02-05 03:20] LABS: Lactic Acid 1.6 mmol/L (0.5-2.2)
[2018-02-05 03:28] LABS: Anion Gap 19 mmol/L (10-20); BUN (Urea Nitrogen) 51 mg/dL (8.4-25.7); Calc. Creatinine Clearance 7 mL/min (70-130); Calcium 9.3 mg/dL (7.8-10.44); Carbon Dioxide 23 mmol/L (23-31); Chloride 101 mmol/L (98-107); Estimated GFR-MDRD 6; Glucose 122 mg/dL (80-115); Potassium 5.8 mmol/L (3.5-5.1); Sodium 137 mmol/L (136-145)
[2018-02-05 03:35] LABS: CKMB 1.8 ng/mL (0-6.6); Troponin I 0.166 ng/mL (< 0.028)
[2018-02-05] MEDS ORDERED: Furosemide 40 MG/4 ML VIAL SLOW IVP SCH (06:00)
--- NOTE | 2018-02-05 06:39 | PDOC.FM ---
- Subjective Subjective: Patient is doing well this morning. He states that his dyspnea has improved significantly since BiPAP was discontinued and after dialysis. - Objective MAR Reviewed: Yes Vital Signs & Weight: Vital Signs (12 hours) Temp Pulse Resp BP Pulse Ox 02/05/18 04:00 98.5 F 109 H 26 H 169/104 H 100 02/05/18 01:55 98.1 F 101 H 34 H 179/49 H 100 Weight Weight 76.022 kg Result Diagrams: 02/05/18 02:45 02/05/18 02:45 <Aide Razo C - Last Filed: 02/05/18 09:09> - Objective Vital Signs & Weight: Vital Signs (12 hours) Temp Pulse Resp BP Pulse Ox 02/05/18 11:00 97.6 F 94 20 159/103 H 98 02/05/18 07:41 98.3 F 112 H 27 H 100 02/05/18 07:13 98.3 F 112 H 27 H 162/99 H 96 02/05/18 04:00 98.5 F 109 H 26 H 169/104 H 100 02/05/18 01:55 98.1 F 101 H 34 H 179/49 H 100 Weight Weight 76.022 kg I&O: 02/04/18 02/05/18 02/06/18 06:59 06:59 06:59 Intake Total 300 240 Output Total 3800 Balance -3500 240 Result Diagrams: 02/05/18 02:45 02/05/18 02:45 <Paxton Bello R - Last Filed: 02/05/18 11:34> Phys Exam - Physical Examination Constitutional: NAD Respiratory: no wheezing, no rales R. sided dullness to percussion Cardiovascular: RRR Gastrointestinal: soft, non-tender, no distention Musculoskeletal: edema present (trace) Neurological: moves all 4 limbs Psychiatric: A&O x 3 Skin: no rash <Aide Razo C - Last Filed: 02/05/18 09:09> Dx/Plan (1) Diabetes mellitus Code(s): E11.9 - TYPE 2 DIABETES MELLITUS WITHOUT COMPLICATIONS Status: Acute (2) Acute respiratory failure with hypoxia Code(s): J96.01 - ACUTE RESPIRATORY FAILURE WITH HYPOXIA Status: Acute (3) Anemia of renal disease Code(s): D63.1 - ANEMIA IN CHRONIC KIDNEY DISEASE Status: Chronic (4) HTN (hypertension) Code(s): I10 - ESSENTIAL (PRIMARY) HYPERTENSION Status: Chronic - Plan Plan: 1. Acute hypoxic respiratory failure - Pt no longer on BiPAP. - wean oxygen as tolerated Right Pleural effusion - s/p Lasix, dialysis - Will attempt to wean off oxygen. - Continue to monitor Hypertension - will await until pt's home medications are available. Hyperkalemia - likely resolved with dialysis ESRD - Dialysis tomorrow, per Dr. Barlow. Diabetes mellitus - blood sugars stable. - will resume home meds as they become available. Disposition: Stable, will transfer out of [facility] to floor today. <Aide Razo - Last Filed: 02/05/18 09:09> Attending Addendum - Attending Addendum Date/Time: 02/05/18 1132 I personally evaluated the patient and discussed the management with Dr. Razo. I agree with the History, Examination, Assessment and Plan documented above with any addition or exceptions noted below. Patient improved from respiratory standpoint s/p 3.8L fluid removal with HD overnight. He is now comfortable on NC. Reports he typically becomes more volume overloaded on the weekends, possible signifying noncompliance with fluid restriction. He is stable to transfer out of [facility] today. Need home med rec to get him back on his anti-HTN and renal meds. Elevated potassium on admit, likely removed with HD, will recheck labs. HD per Nephro. Will need to escalate BP therapy if continues to be elevated throughout the day. <Paxton Bello - Last Filed: 02/05/18 11:34>
[2018-02-05] MEDS: Heparin 5,000 UNITS/ML VIAL SC SCH ×6 (08:14→21:02)
[2018-02-05] MEDS: Insulin Detemir 100 UNITS/ML 10 UNITS in Pre-Filled Syringe 1 EACH SC SCH (08:14)
[2018-02-05] MEDS ORDERED: Prevnar 13-Val Conj/PF 0.5 ML SYRINGE IM ONE (09:00)
[2018-02-05] MEDS ORDERED: Heparin 10,000 UNITS/ 10 ML VIAL ONE (09:00)
[2018-02-05] MEDS ORDERED: predniSONE 5 MG TAB PO SCH (09:45)
--- NOTE | 2018-02-05 09:46 | CON ---
DATE OF CONSULTATION: 02/05/2018 CONSULTING PHYSICIAN: [facility] [place]. REASON FOR CONSULTATION: Acute respiratory failure related to pulmonary edema. HISTORY OF PRESENT ILLNESS: The patient is a 67-year-old male, who came into the hospital with increasing shortness of breath. He was in fluid overload. He has chronic renal failure. He was emergently dialyzed last night. In the interim, he was placed on BiPAP. Since dialysis is completed, he has been able to come off the BiPAP and appears to be breathing well. He says he was seen by his primary care physician, who told he had pneumonia and was started on oral antibiotics for that and initially felt a little better, but became more short of breath over the weekend. PAST MEDICAL HISTORY: 1. End-stage renal disease, requiring hemodialysis. 2. Diabetes mellitus, type 2. 3. Anemia. 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 FAMILY MEDICAL HISTORY: Unremarkable. SOCIAL HISTORY: Quit smoking. Does not consume alcohol or use illicit drugs. MEDICATIONS PRIOR TO ADMISSION: Allopurinol, aspirin, vitamin D3, Pepcid, mycophenolate, Bactrim, Prograf, prednisone, insulin, iron sulfate, folate, Protonix. REVIEW OF SYSTEMS: A 12-point review of systems was otherwise negative. PHYSICAL EXAMINATION: VITAL SIGNS: Temperature 98.3, pulse 112, respirations 27, O2 sat now 100% on nasal cannula, blood pressure 160/99. GENERAL: He is awake, alert, in no distress. HEENT: Unremarkable. NECK: No JVD. LUNGS: Diminished breath sounds in the right base with some mild dullness. CARDIOVASCULAR: S1 and S2, regular. ABDOMEN: Soft, nontender, nondistended. EXTREMITIES: No clubbing, cyanosis, or edema. NEUROLOGIC EXAM: Grossly intact throughout. IMAGING: Chest x-ray demonstrated a small right pleural effusion. LABORATORY DATA: White blood cell count 7.3, hematocrit 36.3, platelet count 153. Sodium 137, potassium 5.8, chloride 101, CO2 of 23, BUN 51, creatinine 11.3, glucose 122. ASSESSMENT: 1. Fluid overload. 2. Suspect some noncompliance with dialysis. 3. Small pleural effusion. 4. Renal failure. PLAN: 1. He can be moved out to the floor. 2. Nephrology consultation. 3. Discontinue BiPAP. 70 min time was spent on this consult. Of that time, >50% was spent with the patient and/or on the patients unit. MTDD
--- NOTE | 2018-02-05 12:12 | PRG ---
DATE OF SERVICE: 02/05/2018 SUBJECTIVE: Mr. Langston is a 67-year-old black male with known history of ESRD and currently on maint enance hemodialysis, status post failed renal transplant and was admitted due to acute respiratory fa ilure/CHF. He underwent emergent hemodialysis yesterday with several liters of fluid removed. This morning, he is feeling better. He has no other complaints. REVIEW OF SYSTEMS: Positive for shortness of breath - improved. No chest pain, no syncopal episode, no nausea, no vomiting, no diarrhea, no abdominal pain, no leg edema. No sore throat. No fever or chills. No medication, no melena, no hematemesis. No allograft tenderness. MEDICATIONS: Furosemide 40 mg IV q.12, heparin 5000 units subcutaneous t.i.d., insulin detemir 10 un its subcutaneously q.a.m., and Humalog sliding scale. HOME MEDICATIONS: Include tacrolimus 1.5 mg p.o. b.i.d., prednisone 5 mg daily, mycophenolate ER 360 mg p.o. b.i.d. PAST MEDICAL HISTORY: 1. ESRD on maintenance hemodialysis. 2. Status post failed renal transplant. 3. History of autosomal dominant polycystic kidney disease. PAST SURGICAL HISTORY: 1. Status post cadaveric renal transplant. 2. Status post AV fistula placement. 3. Status post AV fistulogram. 4. Status post cuffed dialysis catheter placement. SOCIAL HISTORY: The patient is , lives with his . He lives in [place]. No children. 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 No alcohol, no IV drug abuse. St atus post blood transfusion. Education, high school. ALLERGIES: None. TRAUMA: None. IMMUNIZATIONS: Up to date. HOSPITALIZATION: Please see past medical history. FAMILY HISTORY: ? of chronic renal failure. PHYSICAL EXAMINATION: VITAL SIGNS: Blood pressure is 162/99, heart rate 112, respiratory rate 27, temperature 98.3, pulse ox 96%. GENERAL: Awake, alert, comfortable, not in distress. SKIN: Adequate turgor. HEENT: The patient has pinkish conjunctivae, anicteric sclerae. NECK: No neck mass, no carotid bruits, no JVD. CHEST: No deformities. LUNGS: Bibasilar crackles. HEART: Normal sinus rhythm. No murmurs, no gallops, no rubs. ABDOMEN: Globular, soft, nontender, no masses. Renal allograft nontender. EXTREMITIES: No edema. LABORATORY DATA: Laboratories of 02/05/2018; white count 7.2, hemoglobin 11.3, sodium 137, potassium 5.8, chloride 101, carbon dioxide 23, BUN 51, creatinine 11.1, glucose 122, calcium 9.3, troponin I 0.188. IMAGING DATA: Chest x-ray shows CHF. ASSESSMENT AND PLAN: 1. Congestive heart failure, clinically improving, emergent hemodialysis. Several liters of fluid w ere removed. My plan is to do extra hemodialysis in a.m. with this patient to further optimize his c ardiopulmonary status. 2. End-stage renal disease, stable. Continue current maintenance hemodialysis. 3. Status post failed renal transplant. As per recommendation by his renal transplant program, we a re to continue his immunosuppressive regimen of tacrolimus 1.5 mg p.o. b.i.d., prednisone 5 mg once a day and Myfortic 360 mg b.i.d.
[2018-02-05 12:40] LABS: Anion Gap 19 mmol/L (10-20); BUN (Urea Nitrogen) 31 mg/dL (8.4-25.7); Calc. Creatinine Clearance 10 mL/min (70-130); Carbon Dioxide 27 mmol/L (23-31); Chloride 94 mmol/L (98-107); Estimated GFR-MDRD 9; Glucose 171 mg/dL (80-115); Potassium 5.4 mmol/L (3.5-5.1); Sodium 135 mmol/L (136-145)
[2018-02-05 12:47] LABS: Troponin I 0.195 ng/mL (< 0.028)
[2018-02-05] MEDS: HumaLOG 300 UNITS/3 ML VIAL SC SCH ×2 (14:41→21:03)
[2018-02-05 15:49] LABS: CKMB 2.2 ng/mL (0-6.6); Troponin I 0.175 ng/mL (< 0.028)
[2018-02-05] MEDS: Mycophenolate ER 180 MG TAB PO SCH ×2 (16:12→21:05)
[2018-02-05] MEDS ORDERED: Famotidine 20 MG TAB PO SCH (21:00)
[2018-02-05] MEDS ORDERED: INSULIN DETEMIR SC SCH (21:00)
[2018-02-05] MEDS ORDERED: Non-Formulary Item 1 EACH (Insulin Glargine,Hum.Rec.Anlog 16 UNIT) SQ SCH ×2 (21:00)
[2018-02-05] MEDS ORDERED: PRE FILLED SC SCH (21:00)
[2018-02-05] MEDS ORDERED: Tacrolimus 1 MG CAP PO SCH ×2 (21:00)
[2018-02-05] MEDS ORDERED: Latanoprost 0.005% Ophth Soln 2.5 ml Bottle EA EYE SCH (21:00)
[2018-02-05] MEDS: Tacrolimus 0.5 MG CAP PO SCH (21:02)
[2018-02-06 06:22] LABS: Anion Gap 16 mmol/L (10-20); BUN (Urea Nitrogen) 52 mg/dL (8.4-25.7); Calc. Creatinine Clearance 8 mL/min (70-130); Calcium 9.6 mg/dL (7.8-10.44); Carbon Dioxide 28 mmol/L (23-31); Chloride 95 mmol/L (98-107); Estimated GFR-MDRD 7; Glucose 69 mg/dL (80-115); Potassium 5.3 mmol/L (3.5-5.1); Sodium 134 mmol/L (136-145)
[2018-02-06 06:47] LABS: Anisocytosis SLIGHT = 6-15 cells (100X) (0-5/hpf); Band 2 % (5-11); Hemoglobin 10.8 g/dL (14.0-18.0); Hypochromia SLIGHT = 6-15 cells (100X) (0-5/hpf); Lymphocytes 8 % (21-51); MDiff Complete? YES; Mean Corpuscular Hemoglobin 25.6 pg (27.0-31.0); Mean Corpuscular Volume 85.2 fl (80.0-94.0); Mean Platelet Volume 5.9 fL (7.4-10.4); Monocytes 10 % (0-10); Neutrophil 80 % (42-75); Platelet Count 148 thou/uL (130-400); RBC Distribution Width 19.1 % (11.5-14.5); Red Blood Cell (RBC) Count 4.22 mill/uL (4.70-6.10); White Blood Cell (WBC) Count 4.8 thou/uL (4.8-10.8)
--- NOTE | 2018-02-06 08:48 | PRG ---
DATE OF SERVICE: 02/06/2018 SUBJECTIVE: Mr. Langston is a 67-year-old black male with ESRD, status post failed renal transplant, a nd admitted for congestive heart failure. He underwent emergent hemodialysis yesterday. He improved . This morning he is undergoing extra hemodialysis for fluid removal. I am at the bedside supervisi ng his dialysis. He is tolerating said treatment. His shortness of breath is actually improved. PHYSICAL EXAMINATION: VITAL SIGNS: Blood pressure 176/97, heart rate 98, respiratory rate 16, temperature 97.9, pulse ox 9 4%. GENERAL: Noted to be awake, supine, comfortable, not in distress. SKIN: Adequate turgor. HEENT: He has pinkish conjunctivae, anicteric sclerae. NECK: No neck mass, no carotid bruits, no JVD. CHEST: No deformities. LUNGS: Clear breath sounds. HEART: Normal sinus rhythm. No murmur, no gallops, no rubs. ABDOMEN: Globular, soft, nontender, no masses. EXTREMITIES: No edema, no deformities. MEDICATIONS: 02/06/2018 - Reviewed. LABORATORY: 02/06/2018 - White count 4.8, hemoglobin 10.8. Sodium 134, potassium 5.3, chloride 95, carbon dioxide 25, BUN 52, creatinine 9.5, glucose 69, calcium 9.6. Troponin I 0.175. ASSESSMENT AND PLAN: 1. Congestive heart failure, clinically much improved with fluid removal with dialysis. He is still receiving extra dialysis for fluid removal. 2. End-stage renal disease, continuing Monday, Monday, Monday hemodialysis. He received dialysis today for extra fluid removal. Tolerating said treatment. Resume regular Monday, Monday, Monday dialysis in a.m. 3. Hypertension. Continue to observe. If needed, we can start him on a new blood pressure medicati on. Maxing fluid removal to help with the blood pressure. 4. Status post failed renal transplant - as per recommendation by his renal transplant doctors we wi ll continue to maintain him on his current immunosuppressive regimen. Recheck base met and CBC in a.m.
[2018-02-06] MEDS ORDERED: Allopurinol 100 MG TAB PO SCH (09:00)
[2018-02-06] MEDS ORDERED: Cinacalcet HCl 30 MG TAB PO SCH (09:00)
[2018-02-06] MEDS ORDERED: Amlodipine 5 MG TAB PO SCH (09:00)
[2018-02-06] MEDS ORDERED: predniSONE 5 MG TAB PO SCH ×2 (09:00)
[2018-02-06] MEDS ORDERED: Sulfameth/Trimethoprim SS 400-80MG TAB PO SCH (09:00)
[2018-02-06] MEDS ORDERED: Heparin 10,000 UNITS/ 10 ML VIAL ONE (10:00)
--- NOTE | 2018-02-06 10:49 | PDOC.FM ---
- Subjective Subjective: Patient is currently in dialysis. He states that his breathing is back to his baseline. He feels ready to go home. - Objective MAR Reviewed: Yes Vital Signs & Weight: Vital Signs (12 hours) Temp Pulse Resp BP Pulse Ox 02/06/18 04:00 97.9 F 98 16 176/97 H 94 L 02/06/18 01:16 92 L 02/06/18 00:06 95 02/05/18 23:41 97.8 F 96 16 159/84 H 96 Weight Weight 76.022 kg I&O: 02/05/18 02/06/18 02/07/18 06:59 06:59 06:59 Intake Total 300 930 Output Total 3800 Balance -3500 930 Result Diagrams: 02/06/18 05:22 02/06/18 05:22 <Aide Razo C - Last Filed: 02/06/18 10:47> - Objective Vital Signs & Weight: Vital Signs (12 hours) Temp Pulse Resp BP BP Pulse Ox 02/06/18 12:40 166/82 H 02/06/18 11:39 97.4 F L 104 H 20 192/91 H 90 L 02/06/18 11:04 98 02/06/18 08:00 98.5 F 98 18 02/06/18 04:00 97.9 F 98 16 176/97 H 94 L Weight Weight 76.022 kg I&O: 02/05/18 02/06/18 02/07/18 06:59 06:59 06:59 Intake Total 300 930 Output Total 3800 Balance -3500 930 Result Diagrams: 02/06/18 05:22 02/06/18 05:22 <Paxton Bello R - Last Filed: 02/06/18 13:47> Phys Exam - Physical Examination Constitutional: NAD scattered wheezes. Musculoskeletal: no edema Neurological: moves all 4 limbs <Aide Razo - Last Filed: 02/06/18 10:47> Dx/Plan (1) Diabetes mellitus Code(s): E11.9 - TYPE 2 DIABETES MELLITUS WITHOUT COMPLICATIONS Status: Acute (2) Acute respiratory failure with hypoxia Code(s): J96.01 - ACUTE RESPIRATORY FAILURE WITH HYPOXIA Status: Acute (3) Anemia of renal disease Code(s): D63.1 - ANEMIA IN CHRONIC KIDNEY DISEASE Status: Chronic (4) HTN (hypertension) Code(s): I10 - ESSENTIAL (PRIMARY) HYPERTENSION Status: Chronic - Plan Plan: Acute Hypoxic Respiratory Failure - resolved. - patient breathing well on room air. Hypertension - Pt's BP remains elevated - Amlodipine started yesterday - likely will improve with dialysis. Right pleural effusion - likely improving with dialysis. - Pt satting well on room air. ESRD - HD today. Diabetes Mellitus - Fasting blood sugar on [facility] this AM was 69, but accucheck was 74. - Will continue pt's home long-acting insulin regimen Disposition: Likely discharge today. Will continue to monitor BPs throughout the morning/early afternoon, and if stable, will discharge. <Aide Razo - Last Filed: 02/06/18 10:47> Attending Addendum - Attending Addendum Date/Time: 02/06/18 4249 I personally evaluated the patient and discussed the management with Dr. Razo. I agree with the History, Examination, Assessment and Plan documented above with any addition or exceptions noted below. Patient reports feeling well today. He is undergoing HD again today. Denies shortness of breath. Blood pressure somewhat improved, and Norvasc begun on patient to help with BP control as he was not previously on medications. Awaiting further nephro recs but consider discharge later today to resume his normal outpatient HD sessions tomorrow. <Paxton Bello - Last Filed: 02/06/18 13:47>
[2018-02-06] MEDS: Tacrolimus 0.5 MG CAP PO SCH (11:03)
[2018-02-06] MEDS: Heparin 5,000 UNITS/ML VIAL SC SCH ×4 (11:05→15:54)
[2018-02-06] MEDS: Insulin Detemir 100 UNITS/ML 10 UNITS in Pre-Filled Syringe 1 EACH SC SCH (11:05)
[2018-02-06] MEDS: HumaLOG 300 UNITS/3 ML VIAL SC SCH ×2 (11:07→15:55)
[2018-02-06] MEDS: Mycophenolate ER 180 MG TAB PO SCH ×3 (11:11→15:58)
[2018-02-06 11:40] VITALS: TEMP 97.4
[2018-02-06] MEDS ORDERED: hydrALAZINE 20 MG/ML VIAL SLOW IVP PRN ×2 (12:56→12:59)
[2018-02-06 14:42] VITALS: BP 158/81
--- NOTE | 2018-02-06 18:45 | DIS-2 ---
DATE OF ADMISSION: 02/05/2018 DATE OF DISCHARGE: 02/06/2018 ADMITTING ATTENDING: Anais Parker M.D. DISCHARGE ATTENDING: Paxton Bello M.D. RESIDENT: Aide Razo M.D, PGY-2 CONSULTS: Surya Barlow M.D. PROCEDURES: Hemodialysis. PRIMARY DIAGNOSES: 1. Acute hypoxic respiratory failure, resolved. 2. Volume overload, resolved. SECONDARY DIAGNOSES: 1. Right pleural effusion. 2. Diabetes mellitus, type 2. 3. Anemia of chronic disease. 4. Hypertension. 5. End-stage renal disease on hemodialysis. 6. Hyperkalemia, resolved. DISCHARGE MEDICATIONS: 1. Amlodipine 5 mg daily. 2. Lantus 16 units q.p.m. 3. Humalog 6 units t.i.d. with meals. 4. Sensipar 30 mg p.o. daily. 5. Bimatoprost 1 drop per eye at bedtime. 6. Pepcid 20 mg p.o. at bedtime. 7. Tacrolimus 1.5 mg p.o. b.i.d. 8. Prednisone 5 mg p.o. daily. 9. Mycophenolate 360 mg p.o. b.i.d. 10. Bactrim 1 tab p.o. daily. 11. Allopurinol 100 mg p.o. daily. 12. Aspirin 81 mg p.o. daily. DISCONTINUED MEDICATIONS: None. HOSPITAL COURSE: The patient is a 67-year-old -[place] male with history of end-stage renal disease on hemodialysis Monday, Wednesdays, and Fridays. He came in with respiratory distress, initi ally requiring BiPAP. The patient received emergent hemodialysis and shortly after transfer to the [facility], Dr. Barlow was contacted. Patient was transitioned off of BiPAP to nasal cannula and eventually t ransitioned to room air. On the day of discharge, the patient reported feeling back at his baseline level of breathing. Regarding patient's hypertension, the patient's blood pressures were significantly elevated. On admi ssion, he does not have a history of hypertension and is not on any medication for this, initially it was thought that this was related to volume overload; however, the patient's blood pressures remaine d elevated despite receiving dialysis 2 days in a row. Amlodipine 5 mg was started and his blood pre ssures did improve and they are expected to continue to improve as his medication begin to take effec t. Dr. Barlow recommended the patient resume normally, scheduled hemodialysis and then patient plans to fol low up with dialysis tomorrow. Regarding patient's other medical problems, all home medications were restarted as they became available. DISPOSITION: Stable. DISCHARGE INSTRUCTIONS: 1. Location: Home. 2. Diet: Renal, fluid restriction of 1500 mL 3. Activity: Ad angeli. 4. Followup: The patient has an appointment with his primary care provider on 02/13/2018 at 11:30 a .m. and he is also to follow up with hemodialysis tomorrow.
== END 2018-02-06 16:35 | disposition home or self-care (01) | DRG 640 ==
LOC: ERS 22:49 → IMCU/EMU 02-05 00:30 → ONC 02-05 16:48
PROVIDERS: ADMIT Family Medicine; ATTEND Family Medicine
PROC: 5A1D70Z Performance of Urinary Filtration, Intermittent, Less than 6 Hours Per Day (ICD-10-PCS; principal; 2018-02-06)
DX: E87.70 Fluid overload, unspecified (principal); J96.01 Acute respiratory failure with hypoxia; I13.2 Hypertensive heart and chronic kidney disease with heart failure and with stage 5 chronic kidney disease, or end stage renal disease; T86.11 Kidney transplant rejection; J81.1 Chronic pulmonary edema; J90 Pleural effusion, not elsewhere classified; N18.6 End stage renal disease; E11.22 Type 2 diabetes mellitus with diabetic chronic kidney disease; Z99.2 Dependence on renal dialysis; D63.1 Anemia in chronic kidney disease; E87.5 Hyperkalemia; Z79.4 Long term (current) use of insulin; Z79.82 Long term (current) use of aspirin; Z79.52 Long term (current) use of systemic steroids; Z87.891 Personal history of nicotine dependence; Z91.15 Patient's noncompliance with renal dialysis; I50.9 Heart failure, unspecified
CPT/HCPCS: 36415; 36416; 71045; 80048; 80053; 82553; 82805; 83605; 84145; 84484; 85025; 87040; 90471; 90670; 90935; 94660; 96374; A4216; G0009; G0257; G8978-GP-CJ; G8979-GP-CJ; G8980-GP-CJ; G8987-GO-CI; G8988-GO-CI; G8989-GO-CI; J1644; J1815; J1940; J7507

== ENCOUNTER 2018-10-03 10:12 | Outpatient (CLI) | payer MEDICARE, BC ==
[2018-10-03 18:20] VITALS: BP 173/79; TEMP 99.1
== END 2018-10-03 18:18 | disposition home or self-care (01) ==
LOC: ONC/OP 10:12 → ONC 10:14 → ONC/OP 18:18
PROVIDERS: ATTEND Internal Medicine Nephrology
DX: N18.9 Chronic kidney disease, unspecified (principal); D63.1 Anemia in chronic kidney disease
CPT/HCPCS: 36415; 36430; 85027; 86850; 86900; 86901; P9016